=== PATIENT | male | born 1980 | race Caucasian/White ===

== ENCOUNTER → 2023-07-08 | Outpatient (CLI) | payer BC, SELFPAY ==
--- NOTE | 2023-07-08 07:42 | RAD_ITS ---
INDICATION: SHOULDER PAIN RIGHT SHOULDER PAIN FOR 4 MONTHS. NO KNOWN INJURY. EXAMINATION/TECHNIQUE: X-RAY - RIGHT XR Shoulder Min 2 Views 4 VIEWS COMPARISON: None. FINDINGS: BONES: No fracture demonstrated. JOINTS: No dislocation. SOFT TISSUES: Unremarkable. RAD/Shoulder min 2 Views IMPRESSION: Unremarkable study. No evidence of fracture. Electronically Signed: Lazara Delaney MD at 8:05 EDT ,
== END | disposition home or self-care (01) ==
PROVIDERS: PCP Nurse Practitioner Family; Referring Provider Nurse Practitioner Family; Visit Provider Nurse Practitioner Family
DX: M25.511 Pain in right shoulder (principal)
CPT/HCPCS: 73030